=== PATIENT | male | born 1985 | race Caucasian/White ===

== ENCOUNTER 2024-10-31 22:48 | Emergency (ER) | payer SELFPAY ==
[2024-10-31 23:03] VITALS: TEMP 98.5
[2024-10-31 23:11] LABS: BASOPHIL % 0.4 % (0.2-1.2); Basophil (Absolute #) 0.03 x10^3/uL (0.01-0.08); Eosinophil (Absolute #) 0.15 x10^3/uL (0.04-0.54); Hematocrit 37.2 % (40.1-51.0); Hemoglobin 12.3 g/dL (13.7-17.5); IMMATURE GRAN # 0.01 x10^3u/L (0.001-0.031); IMMATURE GRAN % 0.1 % (0.001-0.429); Lymphocyte (Absolute #) 2.10 x10^3/uL (1.32-3.57); Mean Corpuscular Hemoglobin 31.9 pg (25.7-32.2); Mean Corpuscular Hgb Concent. 33.1 g/dL (32.3-36.5); Monocyte (Absolute #) 0.48 x10^3/uL (0.30-0.82); NUCLEATED RBC # 0.00 x10^3u/L (0.00-0.012); NUCLEATED RBC % 0.0 % (0.00-0.2); Platelet Count 259 x10^3/uL (163-337); Red Blood Count 3.86 x10^6/uL (4.63-6.08); White Blood Count 7.6 x10^3/uL (4.23-9.07)
[2024-10-31 23:25] LABS: Calcium 8.5 mg/dL (8.4-10.2); Carbon Dioxide 24.0 mmol/L (22-30); Creatinine 1 1.04 mg/dL (0.66-1.25); EST GLOMERULAR FILTRATION RATE 93.1 ML/MIN; ETHYL ALCOHOL 68.0 mg/dL (0-10); Glucose 106.0 mg/dL (74-106); SGOT/AST 54.0 U/L (17-59); SGPT/ALT 35.0 U/L (0-50); Total Protein 5.8 g/dL (6.3-8.2)
[2024-10-31 23:29] LABS: Potassium 3.0 mmol/L (3.5-5.1)
[2024-11-01 01:05] VITALS: RESP 16
--- NOTE | 2024-11-01 01:55 | ERPHSYRPT ---
- History of Present Illness Source: patient Exam Limitations: no limitations Patient Subjective Stated Complaint: PATIENT HAS GARBLED SLURRED SPEECH WITH INCOMPREHENSIBLE VERBAGE. PATIENT IS ONLY RESPONSIVE TO PAINFUL STIMULI. Triage Nursing Assessment: PATIENT PRESENTED TO ER VIA EMS. EMS STATED PATIENT WAS NONRESPONSIVE AT [facility] AND SEVERLY DEHYDRATED. PATIENT CONFUSED AND UNABLE TO GIVE ANY INFORMATION TO NURSING STAFF. PATIENT HAS GARBLED AND SLURRED SPEECH WITH INCOMPREHENSIBLE VERBAGE. RESPONSIVE TO PAINFUL STIMULI ONLY. LIPS DRY AND CRACKED. RESPIRATIONS EVEN AND NON LABORED. SKIN WARM AND DRY. PATIENT IS DISHEVELED IN APPEARANCE AND HAD BEEN REPORTED TO HAVE BEEN WALKING OUTSIDE FOR SEVERAL DAYS IN [place]. PATIENT HAS A SMELL OF ALCOHOL ON BREATH. NO OBVIOUS TRAUMA OR DEFORMITIES NOTED. Physician History: Patient was found passed out asleep near a [employer]. He has been seen wandering around the community for most of the day. Actually one of our staff saw him on their way into work and he was about 6 or 7 miles away.The police have been called on him a few times over the last few days.The patient is arousable but not really alert. He appears to be extremely sleepy like after a maddox with methamphetamines. He did smell little bit of alcohol.He did not have any focal neurological deficits. We could not get much history from him he was not really talking or communicating much. He would answer but it was garbled like he was just being woken up. Timing/Duration: today Allergies/Adverse Reactions: UNOBTAINABLE Allergy (Verified 10/31/24 23:03) Home Medications: Unobtainable 10/31/24 [History] Hx Tetanus, Diphtheria Vaccination/Date Given: (UNKNOWN) Hx Influenza Vaccination/Date Given: (UNKNOWN) Hx Pneumococcal Vaccination/Date Given: (UNKNOWN) Immunizations Up to Date: (UNKNOWN) Travel Risk - International Travel Have you traveled outside of the country in past 3 weeks: No - Emerging Infectious Disease Are you exhibiting symptoms associated with any current EIDs: No - Review of Systems Constitutional: Other (Unable to obtain review of system) - Past Medical History Pertinent Past Medical History: (UNKNOWN) - Past Surgical History Past Surgical History: (UNKNOWN) - Social History Smoking Status: Unknown if ever smoked Exposure to second hand smoke: (UNKNOWN) - Social Determinants of Health Will the patient participate in the screening: Unable to obtain - Nursing Vital Signs Nursing Vital Signs: Initial Vital Signs Pulse Rate 93 H 10/31/24 22:36 Blood Pressure 92/43 10/31/24 22:36 O2 Sat by Pulse Oximetry 95 10/31/24 22:36 - Physical Exam General Appearance: no apparent distress Eye Exam: PERRL/EOMI Respiratory Exam: normal breath sounds, No respiratory distress Cardiovascular Exam: regular rate/rhythm Gastrointestinal/Abdomen Exam: soft, No tenderness Neurologic Exam: other (Arousable but not interactive) Skin Exam: normal color, warm SpO2: 94 - Course Nursing assessment & vital signs reviewed: Yes Ordered Tests: Active Orders 24 hr Category Date Time Status CBC W DIFF Stat Lab 10/31/24 23:05 Completed CMP Stat Lab 10/31/24 23:05 Completed ETHYL ALCOHOL Stat Lab 10/31/24 23:05 Completed Medication Summary Generic Name Dose Route Start Last Admin Trade Name Freq PRN Reason Stop Dose Admin Sodium Chloride 1,000 mls @ 200 mls/hr 11/01/24 00:33 11/01/24 00:36 Sodium Chloride 0.9% 1000 Ml IV 11/01/24 05:32 200 mls/hr .Q5H ONE Administration Discontinued Medications Generic Name Dose Route Start Last Admin Trade Name Freq PRN Reason Stop Dose Admin Sodium Chloride 1,000 mls @ 999 mls/hr 10/31/24 22:52 11/01/24 00:09 Sodium Chloride 0.9% 1000 Ml IV 10/31/24 23:52 Infused .Q1H1M STA Infusion Sodium Chloride Confirm 10/31/24 23:05 Sodium Chloride 0.9% 1000 Ml Administered 10/31/24 23:06 Dose 1,000 mls @ ud .ROUTE .STK-MED ONE Sodium Chloride Confirm 11/01/24 00:33 Sodium Chloride 0.9% 1000 Ml Administered 11/01/24 00:34 Dose 1,000 mls @ ud .ROUTE .STK-MED ONE Lab/Rad Data: Laboratory Result Diagrams 10/31/24 23:05 10/31/24 23:05 Laboratory Results 10/31/24 10/31/24 Range/Units 23:05 23:05 WBC 7.6 (4.23-9.07) x10^3/uL RBC 3.86 L (4.63-6.08) x10^6/uL Hgb 12.3 L (13.7-17.5) g/dL Hct 37.2 L (40.1-51.0) % MCV 96.4 H (79.0-92.2) fL MCH 31.9 (25.7-32.2) pg MCHC 33.1 (32.3-36.5) g/dL RDW 14.0 (11.6-14.4) % Plt Count 259 (163-337) x10^3/uL MPV 10.2 (9.4-12.4) fL Gran % 63.3 (34.0-67.9) % Immature Gran % (Auto) 0.1 (0.001-0.429) % Nucleat RBC Rel Count 0.0 (0.00-0.2) % Eos # (Auto) 0.15 (0.04-0.54) x10^3/uL Immature Gran # (Auto) 0.01 (0.001-0.031) x10^3u/L Absolute Lymphs (auto) 2.10 (1.32-3.57) x10^3/uL Absolute Monos (auto) 0.48 (0.30-0.82) x10^3/uL Absolute Nucleated RBC 0.00 (0.00-0.012) x10^3u/L Lymphocytes % 27.8 (21.8-53.1) % Monocytes % 6.4 (5.3-12.2) % Eosinophils % 2.0 (0.8-7.0) % Basophils % 0.4 (0.2-1.2) % Absolute Granulocytes 4.78 (1.78-5.38) x10^3/uL Basophils # 0.03 (0.01-0.08) x10^3/uL Sodium 139 (135-145) mmol/L Potassium 3.0 L* (3.5-5.1) mmol/L Chloride 108 H (98-107) mmol/L Carbon Dioxide 24 (22-30) mmol/L Anion Gap 10.1 (5-15) MEQ/L BUN 10 (9-20) mg/dL Creatinine 1.04 (0.66-1.25) mg/dL Estimated GFR 93.1 ML/MIN Glucose 106 (74-106) mg/dL Calcium 8.5 (8.4-10.2) mg/dL Total Bilirubin 0.40 (0.2-1.3) mg/dL AST 54 (17-59) U/L ALT 35 (0-50) U/L Alkaline Phosphatase 64 (38-126) U/L Serum Total Protein 5.8 L (6.3-8.2) g/dL Albumin 3.3 L (3.5-5.0) g/dL Ethyl Alcohol 68 H (0-10) mg/dL - Progress Progress: improved Progress Note: Patient stopped for a while. After few hours he was feeling much better ready for discharge. His labs all look good. I think he may have been just sleeping and probably Catching up after a lot of nights off and not sleeping.He was stable for discharge. 11/01/24 03:20 - Departure Departure Disposition: Home Clinical Impression: Heat exhaustion Condition: Good Critical Care Time: No Referrals: DOCTOR,NO FAMILY [Primary Care Provider, UNKNOWN] - Follow up/PCP as directed Instructions: Heat illness - ED discharge instructions
[2024-11-01 03:22] VITALS: O2SAT 94
[2024-11-01 03:26] VITALS: BP 102/71; PULSE 96
== END 2024-11-01 03:30 | disposition home or self-care (01) ==
LOC: ED 22:48
DX: T67.5XXA Heat exhaustion, unspecified, initial encounter (principal); R41.82 Altered mental status, unspecified